=== PATIENT | male | born 1935 | race Two or more races ===

== ENCOUNTER 2021-09-04 04:54 | Day surgery (SDC) | payer OTHER, BC ==
[2021-09-01 10:18] VITALS: BMI 24.3
[2021-09-04 08:34] LABS: INR 0.9 (0.83-1.09); PROTHROMBIN TIME (PATIENT) 10.3 SEC (9.7-13.0)
[2021-09-04 08:37] LABS: ACTIVATED PTT 32.7 SECONDS (25.2-36.5)
[2021-09-04] MEDS ORDERED: BUPIVACAINE HCL/PF 0.5% (5MG/ML) 10 ML VIAL ONE (09:09)
[2021-09-04] MEDS ORDERED: MIDAZOLAM HCL 2 MG/2 ML SINGLE DOSE VIAL ONE (09:19)
[2021-09-04 09:22] LABS: URINE APPEARANCE CLEAR; URINE BILIRUBIN NEGATIVE (NEGATIVE); URINE COLOR YELLOW; URINE GLUCOSE (UA) 3+ (NEGATIVE); URINE KETONE NEGATIVE (NEGATIVE); URINE LEUK ESTERASE NEGATIVE (NEGATIVE); URINE NITRITE NEGATIVE (NEGATIVE); URINE PROTEIN NEGATIVE (NEGATIVE); URINE UROBILINOGEN 0.2 mg/dL (0.2-1.0)
[2021-09-04] MEDS ORDERED: BUPIVACAINE HCL/PF 0.5% (5 MG/ML) 30 ML VIAL IJ ONE ×2 (09:36)
[2021-09-04] MEDS ORDERED: LIDOCAINE HCL 1%, 10 MG/ML (20ML VIAL) NR ONE ×2 (09:36)
[2021-09-04] MEDS ORDERED: oxyCODONE HCL 5 MG TABLET PO PRN (10:10)
[2021-09-04] MEDS ORDERED: ONDANSETRON 4 MG/2 ML VIAL IVPUSH PRN (10:10)
[2021-09-04] MEDS ORDERED: LACTATED RINGERS SOLUTION 1,000 ML IV SCH (10:15)
[2021-09-04 12:26] VITALS: BP 140/70; PULSE 140; TEMP 20
== END 2021-09-04 12:25 | disposition home or self-care (01) ==
LOC: JASU-SURG 04:54
PROVIDERS: ATTEND Orthopaedic Surgery
PROC: 0LB60ZZ Excision of Left Lower Arm and Wrist Tendon, Open Approach (ICD-10-PCS; 2021-09-04)
PROC: 01N50ZZ Release Median Nerve, Open Approach (ICD-10-PCS; principal; 2021-09-04 09:00)
DX: G56.02 Carpal tunnel syndrome, left upper limb (principal); M65.832 Other synovitis and tenosynovitis, left forearm; I10 Essential (primary) hypertension; E11.9 Type 2 diabetes mellitus without complications
CPT/HCPCS: 36415; 81003; 82962; 85610; 85730; 88304-TC; 94760

== ENCOUNTER 2021-10-23 04:28 | Day surgery (SDC) | payer OTHER, BC ==
[2021-10-18 15:19] VITALS: BMI 24.3
[2021-10-23 08:36] LABS: PH,URINE 5.5 (5.0-8.0); URINE APPEARANCE CLEAR; URINE BILIRUBIN NEGATIVE (NEGATIVE); URINE COLOR YELLOW; URINE GLUCOSE (UA) 3+ (NEGATIVE); URINE KETONE NEGATIVE (NEGATIVE); URINE LEUK ESTERASE NEGATIVE (NEGATIVE); URINE NITRITE NEGATIVE (NEGATIVE); URINE PROTEIN TRACE (NEGATIVE); URINE UROBILINOGEN 0.2 mg/dL (0.2-1.0)
[2021-10-23] MEDS ORDERED: BUPIVACAINE HCL/PF 0.5% (5MG/ML) 10 ML VIAL ONE (08:48)
[2021-10-23] MEDS ORDERED: LIDOCAINE HCL 1%, 10 MG/ML (20ML VIAL) ONE (08:48)
[2021-10-23] MEDS ORDERED: PROPOFOL 20 ML ONE (09:30)
[2021-10-23] MEDS ORDERED: MIDAZOLAM HCL 2 MG/2 ML SINGLE DOSE VIAL ONE (09:34)
[2021-10-23] MEDS ORDERED: ceFAZolin SODIUM 1 GM VIAL IVPB ONE (09:35)
[2021-10-23] MEDS ORDERED: LIDOCAINE HCL 1%, 10 MG/ML (20ML VIAL) NR ONE (09:53)
[2021-10-23] MEDS ORDERED: BUPIVACAINE HCL/PF 0.5% (5MG/ML) 10 ML VIAL IJ ONE ×2 (09:53)
[2021-10-23] MEDS ORDERED: LIDOCAINE HCL/PF 2% SDV 5ML VIAL ONE (09:58)
[2021-10-23 10:41] VITALS: RESP 20
[2021-10-23 12:53] VITALS: BP 120/70; PULSE 70; TEMP 98
== END 2021-10-23 11:45 | disposition home or self-care (01) ==
LOC: JASU-SURG 04:28
PROVIDERS: ATTEND Orthopaedic Surgery
PROC: 01N50ZZ Release Median Nerve, Open Approach (ICD-10-PCS; principal; 2021-10-23 09:00)
DX: G56.01 Carpal tunnel syndrome, right upper limb (principal); M65.831 Other synovitis and tenosynovitis, right forearm; I10 Essential (primary) hypertension; E11.9 Type 2 diabetes mellitus without complications; Z79.4 Long term (current) use of insulin
CPT/HCPCS: 81003; 82962; 88304-TC